=== PATIENT | female | born 1985 | race Caucasian/White ===

== ENCOUNTER 2017-01-28 18:08 | Emergency (ER) | payer BC, OTHER ==
[~2017-01-28] VITALS: Ht 162.6 cm; Wt 57.8 kg
[2017-01-28 18:54] VITALS: Ht 162.6 cm; Wt 57.8 kg
--- NOTE | 2017-01-28 21:11 | ERD ---
ER Documentation Chief Complaint Date/Time DATE: 01/28/17 TIME: 21:08 Chief Complaint 8 wks , left sided lower abd pain x 2 days HPI This is a 31-year-old female who is complaining of 2 days of sharp left lower abdominal pain that occurs at rest or with walking and movement. She thinks she is 8 weeks by dates but is not sure. No vaginal bleeding no dysuria no fever no diarrhea but she is having morning sickness daily. 1. No pelvic contractions or cramps. No low back pain ROS All systems reviewed and are negative except as per history of present illness. Allergies Allergies: Coded Allergies: No Known Allergy (Unverified , 01/28/17) PMhx/Soc Medical and Surgical Hx: pt denies Medical Hx, pt denies Surgical Hx History of Surgery: No Anesthesia Reaction: No Hx Neurological Disorder: No Hx Respiratory Disorders: No Hx Cardiac Disorders: No Hx Psychiatric Problems: No Hx Miscellaneous Medical Probl: No Hx Alcohol Use: No Hx Substance Use: No Hx Tobacco Use: No Smoking Status: Never smoker FmHx Family History: No coronary disease Physical Exam Vitals Vital Signs Date Time Temp Pulse Resp B/P Pulse Ox O2 Delivery O2 Flow Rate FiO2 01/28/17 18:54 97.8 81 20 152/66 99 Physical Exam Const: Well-developed, well-nourished Head: Atraumatic, normocephalic Eyes: Normal Conjunctiva, PERRLA, EOMI, normal sclera, no nystagmus ENT: Normal External Ears, Nose and Mouth, moist mucus membranes. Neck: Full range of motion. No meningismus, no lymphadenopathy. Resp: Clear to auscultation bilaterally, no wheezing, rhonchi, rales Cardio: Regular rate and rhythm, no murmurs, S1 S2 present Abd: Soft, mild left adnexal tenderness to palpation, appears more gravid than stated age weeks by dates, non distended. Normal bowel sounds, no guarding or rebound, no pulsitile abdominal masses or bruits Skin: No petechiae or rashes, no ecchymosis , no maculopapular rash Back: No midline or flank tenderness Ext: No cyanosis, or edema, FROM x 4, normal inspection, neurovascularly intact x 4 Neur: Awake and alert, STR 5/5 x 4, sensation intact x 4, no focal findings, cerebellum intact Psych: Normal Mood and Affect Procedures/MDM Beta hCG is drawn. Gynecological ultrasounds been ordered. The patient will be discharged home if her ultrasound demonstrates a live IUP and was given discharge precautions as threatened miscarriage. Told home care and vaginal bleeding precautions to return She is not having any vaginal bleeding PROCEDURE: US OB. CLINICAL INDICATION: Sharp pelvic pain and . TECHNIQUE: Transabdominal and transvaginal views of the pelvis are available for review. COMPARISON: No prior studies are available for comparison. FINDINGS: Uterus: Normal in size measuring 9 x 7.7 x 6.2 cm without evidence of masses. Endometrium: Intrauterine gestational sac, yolk sac and a pole are present with the following information: [place]-rump length: 1.66 cm heart rate: 176 bpm Gestational sac: 2.90 cm Ultrasound estimated gestational age: 8 weeks No subchorionic hemorrhage is demonstrated. Right ovary/adnexa: Normal ovarian size measured at 2.4 x 2.2 x 1.9 cm with positive blood flow and no evidence of adnexal mass. Left ovary/adnexa: Normal ovarian size estimated at 2.2 x 2 x 1.4 cm. Normal blood flow. No evidence of adnexal mass. Cul-de-sac: There is no free fluid. RPTAT:HJJR IMPRESSION: 1. Single viable intrauterine with an estimated gestational age of 8 weeks, the estimated date of delivery 09/09/2017. 2. No evidence of subchorionic hemorrhage. 3. Sonographically normal ovaries. Physician Marleny Date Time Electronically viewed and signed by Physician Marleny on 01/28/2017 21:28 JR/ CC: CAMILLE RDZ DO Departure Diagnosis: Primary Impression: Threatened Condition: Stable Patient Instructions: Possible Miscarriage (Threatened ) Referrals: DOCTOR,NOT ON STAFF (PCP) CAMILLE RDZ DO Jan 28, 2017 21:11
--- NOTE | 2017-01-28 21:28 | RADRPT ---
PROCEDURE: US OB. CLINICAL INDICATION: Sharp pelvic pain and . TECHNIQUE: Transabdominal and transvaginal views of the pelvis are available for review. COMPARISON: No prior studies are available for comparison. FINDINGS: Uterus: Normal in size measuring 9 x 7.7 x 6.2 cm without evidence of masses. Endometrium: Intrauterine gestational sac, yolk sac and a pole are present with the following information: [place]-rump length:1.66 cm heart rate:176 bpm Gestational sac:2.90 cm Ultrasound estimated gestational age:8 weeks No subchorionic hemorrhage is demonstrated. Right ovary/adnexa: Normal ovarian size measured at 2.4 x 2.2 x 1.9 cm with positive blood flow and no evidence of adnexal mass. Left ovary/adnexa: Normal ovarian size estimated at 2.2 x 2 x 1.4 cm. Normal blood flow. No evide nce of adnexal mass. Cul-de-sac: There is no free fluid. RPTAT:HJJR IMPRESSION: 1. Single viable intrauterine with an estimated gestational age of 8 weeks, the estimated date of delivery 09/09/2017. 2. No evidence of subchorionic hemorrhage. 3. Sonographically normal ovaries. Physician Marleny Date Time Electronically viewed and signed by Physician Marleny on 01/28/2017 21:28 /
[2017-01-28 21:45] VITALS: BP 118/61; PULSE 74; RESP 16
== END 2017-01-28 21:46 | disposition home or self-care (01) ==
LOC: FTE 18:08
DX: O20.0 Threatened abortion (principal); R10.2 Pelvic and perineal pain; Z3A.08 8 weeks gestation of pregnancy
CPT/HCPCS: 36415; 76801; 76817; 84702

== ENCOUNTER 2017-08-27 14:51 | Inpatient (IN) | payer BC ==
[~2017-08-27] VITALS: Ht 157.5 cm; Wt 71.4 kg
[2017-08-27 15:09] VITALS: Ht 157.5 cm; Wt 71.4 kg
[2017-08-27 15:10] VITALS: BP 143/82
[2017-08-27] MEDS ORDERED: PREN1TAB17 PO (15:13)
[2017-08-27] MEDS ORDERED: CARBOPROST 250 MCG INJ IM PRN (15:30)
[2017-08-27] MEDS ORDERED: BUTORPHANOL 2 MG INJ IV PRN (15:30)
[2017-08-27] MEDS ORDERED: OXYTOCIN 30 UNITS/LR 500 ML IV SCH (15:30)
[2017-08-27] MEDS ORDERED: METHYLERGONOVINE 0.2 MG INJ IM PRN (15:30)
[2017-08-27] MEDS ORDERED: OXYTOCIN 30 UNITS/LR 500 ML IV PRN (15:30)
[2017-08-27] MEDS ORDERED: MISOPROSTOL 200 MCG TAB PR PRN (15:30)
[2017-08-27] MEDS ORDERED: LACTATED RINGER'S 1,000 ML IV PRN (15:30)
[2017-08-27] MEDS ORDERED: LIDOCAINE 1% (MPF) 30 ML INJ INJ PRN (15:30)
[2017-08-27] MEDS: LACTATED RINGER'S 1,000 ML IV SCH ×2 (15:53→20:46)
[2017-08-27 16:32] LABS: BASOPHILS % 0.3 % (0.0-2.0); EOSINOPHILS # 0.1 10^3/ul (0.0-0.5); EOSINOPHILS % 0.9 % (0.0-7.0); HEMATOCRIT 30.1 % (37.0-47.0); HEMOGLOBIN 9.6 g/dl (12.0-16.0); LYMPHOCYTES # 1.2 10^3/ul (0.8-2.9); MEAN CORPUSCULAR HEMOGLOBIN 22.2 pg (29.0-33.0); MEAN CORPUSCULAR HGB CONC 31.9 g/dl (32.0-37.0); MEAN CORPUSCULAR VOLUME 69.7 fl (82.0-101.0); MEAN PLATELET VOLUME 10.9 fl (7.4-10.4); MONOCYTE # 0.7 10^3/ul (0.3-0.9); MONOCYTES % 7.7 % (0.0-11.0); NEUTROPHIL # 7.1 10^3/ul (1.6-7.5); NEUTROPHILS % 75.7 % (39.0-77.0); PLATELET COUNT 221 10^3/UL (140-415); RED BLOOD COUNT 4.32 10^6/ul (4.20-5.40); RED CELL DISTRIBUTION WIDTH 15.6 % (11.5-14.5); WHITE BLOOD COUNT 9.4 10^3/ul (4.8-10.8)
[2017-08-27 16:44] LABS: INR 0.91; PROTIME 12.2 Sec (12.2-14.2)
[2017-08-27 16:45] LABS: PARTIAL THROMBOPLASTIN TIME 27.2 Sec (25.0-35.0)
[2017-08-27 16:49] LABS: GLUCOSE 93 mg/dl (70-220)
[2017-08-27] MEDS ORDERED: FENTAnyl 2MCG/ML-ROPIV 0.2% 100 ML ONE (19:09)
[2017-08-27] MEDS ORDERED: FENTAnyl 2MCG/ML-ROPIV 0.2% 100 ML BAG EPI SCH (19:30)
[2017-08-27] MEDS ORDERED: KETOROLAC 30 MG INJ IV PRN (19:30)
[2017-08-27] MEDS ORDERED: NALOXONE (0.4 MG/ML) INJ IV PRN (19:30)
[2017-08-27] MEDS ORDERED: HYDROmorphONE 1 MG/ML SYG IV PRN ×2 (19:30)
[2017-08-27] MEDS ORDERED: ONDANSETRON 4 MG INJ IV PRN (19:30)
[2017-08-27] MEDS ORDERED: DIPHENHYDRAMINE 50 MG INJ IV PRN (19:30)
[2017-08-27] MEDS ORDERED: MINERAL OIL LIGHT 10 ML VIAL TOP ONE (22:45)
[2017-08-27 23:05] VITALS: BP 134/72; PULSE 100; RESP 20
[2017-08-27 23:15] VITALS: BP 130/68; PULSE 111; RESP 20
[2017-08-27] MEDS: OXYTOCIN 30 UNITS/LR 500 ML IV SCH (23:22)
[2017-08-27 23:30] VITALS: BP 134/70; PULSE 109; RESP 18
[2017-08-27 23:45] VITALS: BP 134/76; PULSE 101; RESP 18
[2017-08-28] VITALS (7 sets, daily range): BP systolic 108–134; BP diastolic 61–84; PULSE 17–100; RESP 16–20
[2017-08-28] MEDS ORDERED: OXYTOCIN 10 UNIT INJ ONE (01:06)
--- NOTE | 2017-08-28 02:35 | HP ---
Date/Time of Note Date/Time of Note DATE: 08/28/17 TIME: 02:22 OB - History Hx of Present Free Text/Dictation 31 y.o EDC came in labor with uc and intact membrane.VE 3-4cm/90% /0 had unevenful course admitted for expectant management Chief Complaint: u/C Estimated Due Date: Sep 07, 2017 : 1 Para: 0 Spontaneous : 0 Therapeutic : 0 Care: Good Care Ultrasounds: Normal mid trimester US Obstetrical Complications: None Medical Complications: None Past Family/Social History * Past Medical, Surgical, Family and Obstetric Histories reviewed from chart. Blood Type: O+ Rubella: immune RPR/VDRL: Negative GBS Status: Negative HBsAG: Negative OB Admission Exam Vital Signs Vital Signs Vital Signs Date Time Temp Pulse Resp B/P Pulse Ox O2 Delivery O2 Flow Rate FiO2 08/27/17 15:10 98.6 143/82 Room Air Physical Exam HEENT: WNL Heart: Rhythm Normal Lungs: Clear, Equal Abdomen: WNL Extremities: Normal Reflexes: Normal Cervical Dilatation: 4cm Effacement: Other (90%) Station: 0 Membranes: Intact Amniotic Fluid: Unevaluable Heart Rate: 140's Accelerations: Accelerations Present Decelerations: No Decelerations Varibility: Moderate Contractions on Admission: < 5 Minutes Apart Intensity: Moderate Last 72 hourBlood Glucose Bedside Glucose - 72 Hours Test 08/27/17 18:47 Bedside Glucose 88mg/dL (70-220) Last 72 hours Lab Results CBC & BMP 08/27/17 15:40 OB Assessment/Plan Reason for admission: active labor Plan: Expectant Management SHELBY PARR MD Aug 28, 2017 02:34
--- NOTE | 2017-08-28 03:19 | LDN ---
Date/Time of Note Date/Time of Note DATE: 08/28/17 TIME: 03:14 Delivery Summary normal vaginal delivery Weeks of Gestation 38w4d Placenta Delivered: Spontaneously Meconium: none Perineal laceration: 0 Anesthesia type: Epidural Estimated blood loss: 200 Sponge & Needle done & correct: Yes All needle counts correct: Yes Any foreign bodies felt in the: No Problems: Infant Delivery Information Sex Sex: male Apgars 1 Minute: 9 5 Minute: 9 Suctioning Nose & mouth suctioned at jem: Yes Delee suction performed: No Umbilical Cord Umbilical cord with: 3 Vessels Cord presentations: no nuchal cord Cord Blood was obtained: Yes Mother & Baby Disposition Disposition Mom transferred to: Other () Baby to NICU: No SHELBY PARR MD Aug 28, 2017 03:19
[2017-08-28] MEDS: OXYTOCIN 30 UNITS/LR 500 ML IV SCH (03:24)
[2017-08-28] MEDS ORDERED: METHYLERGONOVINE 0.2 MG INJ IM PRN (03:30)
[2017-08-28] MEDS ORDERED: OXYCODONE/ASPIRIN (4.88/325) TAB PO PRN ×2 (03:30)
[2017-08-28] MEDS ORDERED: LANOLIN 7 GM TUBE TOP PRN (03:30)
[2017-08-28] MEDS ORDERED: OXYTOCIN 30 UNITS/LR 500 ML IV PRN (03:30)
[2017-08-28] MEDS ORDERED: ZOLPIDEM 5 MG TAB PO PRN (03:30)
[2017-08-28] MEDS ORDERED: BENZOCAINE 20% 56 ML SPRAY TOP PRN (03:30)
[2017-08-28] MEDS ORDERED: WITCH HAZEL/GLYCERIN PAD PR PRN (03:30)
[2017-08-28] MEDS ORDERED: MISOPROSTOL 200 MCG TAB PR PRN (03:30)
[2017-08-28] MEDS ORDERED: CARBOPROST 250 MCG INJ IM PRN (03:30)
[2017-08-28] MEDS: IBUPROFEN 600 MG TAB PO SCH ×3 (05:36→17:42)
[2017-08-28] MEDS: SENNA/DOCUSATE NA (8.6MG/50MG) TAB PO SCH ×2 (09:19→20:58)
[2017-08-29] MEDS: IBUPROFEN 600 MG TAB PO SCH ×5 (00:19→23:44)
[2017-08-29 04:00] VITALS: BP 108/62; PULSE 89; RESP 16
[2017-08-29 08:40] VITALS: BP 112/66; PULSE 88; RESP 19
[2017-08-29 09:37] LABS: BASOPHILS % 0.3 % (0.0-2.0); EOSINOPHILS # 0.2 10^3/ul (0.0-0.5); EOSINOPHILS % 1.5 % (0.0-7.0); HEMATOCRIT 26.6 % (37.0-47.0); HEMOGLOBIN 8.8 g/dl (12.0-16.0); LYMPHOCYTES # 1.5 10^3/ul (0.8-2.9); LYMPHOCYTES % 11.2 % (15.0-51.0); MEAN CORPUSCULAR HEMOGLOBIN 23.3 pg (29.0-33.0); MEAN CORPUSCULAR HGB CONC 33.1 g/dl (32.0-37.0); MEAN CORPUSCULAR VOLUME 70.6 fl (82.0-101.0); MEAN PLATELET VOLUME 11.6 fl (7.4-10.4); MONOCYTE # 0.7 10^3/ul (0.3-0.9); MONOCYTES % 5.3 % (0.0-11.0); NEUTROPHIL # 10.9 10^3/ul (1.6-7.5); NEUTROPHILS % 80.5 % (39.0-77.0); PLATELET COUNT 218 10^3/UL (140-415); RED BLOOD COUNT 3.77 10^6/ul (4.20-5.40); RED CELL DISTRIBUTION WIDTH 15.1 % (11.5-14.5); WHITE BLOOD COUNT 13.5 10^3/ul (4.8-10.8)
[2017-08-29] MEDS: SENNA/DOCUSATE NA (8.6MG/50MG) TAB PO SCH ×2 (09:46→21:34)
[2017-08-29 16:15] VITALS: BP 125/69; PULSE 89; RESP 18
[2017-08-29 20:00] VITALS: BP 121/72; PULSE 84; RESP 18
--- NOTE | 2017-08-29 21:56 | PD.PPDC ---
[facility] Discharge Instruction Diagnosis Final Diagnosis: s/p normal vaginal deliveru Condition Patient Condition: Stable Diet Diet: Resume Regular Diet Activity/Restrictions Activity: May Shower Restrictions: No Lifting No Sexual Activity No [place] No Tampons, douche Follow-up Follow-up with Physician: 6, Week/Weeks Return to clinic for [employer] Instructions: Fever greater than 101 Chills Worsening abdominal pain Excessive Vaginal Bleeding More than 2 pads per hour Unable to tolerate diet OB Instructions: Breast Tenderness Depression Blurried Vision SHELBY PARR MD Aug 29, 2017 21:56
--- NOTE | 2017-08-29 21:59 | DS ---
Date/Time of Note Date/Time of Note DATE: 08/29/17 TIME: 21:58 Obstetrical Discharge Record Final Diagnosis Final Diagnosis: Term delivered Vaginal Delivery Obstetrical Delivery: Spontaneous Complications Augmentation: No Induction: No Rupture of Membranes: No Condition on Discharge Physical Assessment Last Vitals: vss afebrile Voiding: Yes Bowel Movement: Yes Breast: Soft, non-tender Calf Tenderness: No Patient Condition: Stable SHELBY PARR MD Aug 29, 2017 21:59
[2017-08-30] MEDS ORDERED: DIPHTH/TET/ACEL PERTUSS (ADULT) 0.5 ML VIAL IM* ONE (09:00)
--- NOTE | 2017-08-31 14:35 | CONS ---
Date/Time of Note Date/Time of Note DATE: 08/31/17 TIME: 14:35 Consultation Date/Type/Reason Admit Date/Time Aug 27, 2017 at 14:51 Initial Consult Date 08/28/17 Type of Consultation: Anesthesiology Reason for Consultation follow up 24 HR Interval Summary Free Text/Dictation Pt seen and examined at bedside on 08/28/17 is POD#1 s/p . Pt received Epidural for post op labor pain relief and pain is currently controlled adequately. No N/V/D/GOOD/Numbness in extremities. Will follow. Constitutional: improved, no complaints Exam/Review of Systems Vital Signs Vitals Vital Signs Date Time Temp Pulse Resp B/P Pulse Ox O2 Delivery O2 Flow Rate FiO2 08/29/17 20:00 98.1 84 18 121/72 Room Air 08/28/17 03:05 98 Results Result Diagram: 08/29/17 0837 08/27/17 1540 Results 24 hrs Laboratory Tests Test 08/31/17 14:16 Lab Scanned Report REFERENCE [facility] BRIANDA GOODE Aug 31, 2017 14:35
== END 2017-08-29 23:50 | disposition home or self-care (01) | DRG 775 ==
LOC: L-D 14:51 → PP1 08-28 03:48 → EDSTATUS 09-07 14:50
PROVIDERS: ADMIT Obstetrics & Gynecology; ATTEND Obstetrics & Gynecology
PROC: 10E0XZZ Delivery of Products of Conception, External Approach (ICD-10-PCS; principal; 2017-08-28)
DX: O80 Encounter for full-term uncomplicated delivery (principal); Z37.0 Single live birth; Z3A.38 38 weeks gestation of pregnancy
CPT/HCPCS: 62319; 82947; 82962; 85025; 85610; 85730; 86592; 86900; 86901; 87340; J2590; J3010; J7120